=== PATIENT | male | born 1925 | race Caucasian/White ===

== ENCOUNTER 2016-12-18 19:02 | Emergency (ER) | payer MEDICARE ==
[~2016-12-18] VITALS: Ht 170.1 cm; Wt 68.0 kg
[~2016-12-18 19:02] MED LIST: AFRIN15 ML NAS; ARICEPT5 M1 PO; ASPIR LOW81 MG PO; B12100 MC1 PO; CELEXA40 MG PO; FLAGYL250 MG PO; FLECTOR1.3% TD; FLOMAX0.4 MG PO; KLOR-CON 88 ME1 PO; LEVAQUIN750 M1 PO; NAMENDA-5 PO; NASAL SPRAY30 ML NS; REMERON15 M2 PO; TRAMADOL HCL50 MG PO; VISTARIL25 M2 PO; ZETIA10 MG PO
[2016-12-18 19:21] LABS: BILIRUBIN NEGATIVE (NEGATIVE); BLOOD TRACE-INTACT (NEGATIVE); CLARITY SL CLOUDY (CLEAR); COLOR YELLOW (YELLOW); GLUCOSE NEGATIVE (NEGATIVE); KETONE NEGATIVE (NEGATIVE); LEUKO ESTERASE 3+ (NEGATIVE); NITRITE NEGATIVE (NEGATIVE); PH 6.5 (5.0-9.0); UROBILINOGEN 0.2 E.U./dl (0.2-1.0)
[2016-12-18 19:31] LABS: BASO % 0.3 % (0.0-1.0); EOS # 0.2 10*3/uL (0.0-0.4); EOS % 2.1 % (1.0-4.0); HEMATOCRIT 39.1 % (42.0-52.0); HEMOGLOBIN 12.5 g/dl (14.0-18.0); LYMPH # 0.9 10*3/uL (1.3-4.4); LYMPH % 12.3 % (27.0-41.0); MEAN CELL VOLUME 89.1 fl (80.0-94.0); MEAN CORPUSCULAR HGB 28.5 pg (27.0-31.0); MEAN PLATELET VOLUME 10.3 fl (9.6-12.3); MONO # 0.9 10*3/uL (0.1-1.0); MONO % 11.3 % (3.0-9.0); NEUT # 5.5 10*3/uL (2.3-7.9); NEUT % 73.6 % (47.0-73.0); PLATELET COUNT AUTOMATED 251 10*3/uL (130-400); RED BLOOD COUNT 4.39 10*6/uL (4.50-5.90); RED CELL DISTRI WIDTH 15.6 % (0-14.5); WHITE BLOOD COUNT 7.5 10*3/uL (4.8-10.8)
[2016-12-18 19:34] LABS: BACTERIA 2+; EPITHELIAL CELLS 20-25; WBC TNTC wbc/hpf (0-5)
[2016-12-18 19:46] LABS: ALBUMIN 3.7 gm/dl (3.1-4.5); CREATININE 1.72 mg/dL (0.70-1.30); POTASSIUM 4.9 mmol/L (3.5-5.1); TOTAL PROTEIN 7.7 gm/dL (6.4-8.2)
== END 2016-12-18 23:20 | disposition short-term general hospital (02) ==
LOC: ED 19:02
PROVIDERS: Physician Assistant
DX: N13.2 Hydronephrosis with renal and ureteral calculous obstruction (principal); N30.01 Acute cystitis with hematuria; N28.9 Disorder of kidney and ureter, unspecified; Z98.890 Other specified postprocedural states; Z90.49 Acquired absence of other specified parts of digestive tract; Z79.899 Other long term (current) drug therapy; Z79.82 Long term (current) use of aspirin; Z88.5 Allergy status to narcotic agent; Z87.442 Personal history of urinary calculi

== ENCOUNTER 2017-03-29 05:49 | Emergency (ER) | payer MEDICARE ==
[~2017-03-29] VITALS: Ht 177.8 cm; Wt 54.4 kg
== END 2017-03-29 13:24 | disposition home or self-care (01) ==
LOC: ED 05:49
DX: T83.83XA Hemorrhage due to genitourinary prosthetic devices, implants and grafts, initial encounter (principal); J44.9 Chronic obstructive pulmonary disease, unspecified; E78.5 Hyperlipidemia, unspecified; Z88.6 Allergy status to analgesic agent; Z79.899 Other long term (current) drug therapy; Z90.49 Acquired absence of other specified parts of digestive tract